=== PATIENT | female | born 1950 | race Caucasian/White ===

== ENCOUNTER → 2018-04-02 11:35 | Outpatient (CLI) | payer OTHER, SELFPAY ==
--- NOTE | 2018-04-02 | DI.MG.S_ITS ---
BILATERAL DIGITAL SCREENING MAMMOGRAM 3D/2D WITH CAD: 04/02/2018 CLINICAL: Routine screening. Family history of breast cancer. Comparison is made to exams dated: 03/20/2017 mammogram, 03/17/2016 mammogram, and 03/16/2015 mammogram - [facility]. There are scattered fibroglandular elements in both breasts. Current study was also evaluated with a Computer Aided Detection (CAD) system. No significant masses, calcifications, or other findings are seen in either breast. There has been no significant interval change. IMPRESSION: NEGATIVE There is no mammographic evidence of malignancy. A 1 year screening mammogram is recommended. This exam was interpreted at Station ID: [id number]. NOTE: For mammograms, a report in lay terms will be sent to the patient. Approximately 15% of breast malignancies will not be visualized mammographically. In the management of a palpable breast mass, a negative mammogram must not discourage biopsy of a clinically suspicious lesion. Electronically Signed By: Maciel davila/rowdy:04/02/2018 14:45:11 letter sent: Normal Exam ACR BI-RADS Category 1: Negative [id number]
== END ==
PROVIDERS: PCP Family Medicine; Visit Provider Family Medicine
DX: Z12.31 Encounter for screening mammogram for malignant neoplasm of breast (principal); Z80.3 Family history of malignant neoplasm of breast
CPT/HCPCS: 77063; 77067

== ENCOUNTER → 2019-04-06 11:19 | Outpatient (CLI) | payer OTHER, SELFPAY ==
--- NOTE | 2019-04-06 | DI.MG.S_ITS ---
BILATERAL DIGITAL SCREENING MAMMOGRAM 3D/2D WITH CAD: 04/06/2019 CLINICAL: Routine screening. Family history of breast cancer. Comparison is made to exams dated: 04/02/2018 mammogram, 03/20/2017 mammogram, and 03/17/2016 mammogram - [facility]. There are scattered fibroglandular elements in both breasts. Current study was also evaluated with a Computer Aided Detection (CAD) system. There is an oval equal density mass with an obscured and circumscribed margin in the right breast at 12 o'clock in the retroareolar region. No other significant masses, calcifications, or other findings are seen in either breast. IMPRESSION: INCOMPLETE: NEEDS ADDITIONAL IMAGING EVALUATION The oval equal density mass in the right breast is indeterminate. Mediolateral and spot compression views as well as additional views with possible ultrasound are recommended. This exam was interpreted at Station ID: [id number]. NOTE: For mammograms, a report in lay terms will be sent to the patient. Approximately 15% of breast malignancies will not be visualized mammographically. In the management of a palpable breast mass, a negative mammogram must not discourage biopsy of a clinically suspicious lesion. Electronically Signed By: Rigo garcias/rowdy:04/06/2019 15:33:50 letter sent: Additional Imaging Needed ACR BI-RADS Category 0: Incomplete 3340F
== END ==
PROVIDERS: PCP Family Medicine; Visit Provider Family Medicine
DX: Z12.31 Encounter for screening mammogram for malignant neoplasm of breast (principal); Z80.3 Family history of malignant neoplasm of breast
CPT/HCPCS: 77063; 77067

== ENCOUNTER → 2019-04-21 12:29 | Outpatient (CLI) | payer OTHER, SELFPAY ==
--- NOTE | 2019-04-21 | DI.MG.S_ITS ---
UNILATERAL RIGHT DIGITAL DIAGNOSTIC MAMMOGRAM 3D/2D WITH ADDITIONAL VIEWS: 04/21/2019 CLINICAL: Additional evaluation requested from prior study. Comparison is made to exams dated: 04/06/2019 mammogram, 04/02/2018 mammogram, and 03/20/2017 mammogram - [facility]. There are scattered fibroglandular elements in right breast. There is 0.5 cm oval equal density mass with a circumscribed margin in the right breast at 12 o'clock anterior depth. No other significant masses or calcifications are seen in the breast. IMPRESSION: INCOMPLETE: NEEDS ADDITIONAL IMAGING EVALUATION The 0.5 cm oval equal density mass in the right breast is indeterminate. An ultrasound is recommended. This exam was interpreted at Station ID: [id number]. NOTE: For mammograms, a report in lay terms will be sent to the patient. Approximately 15% of breast malignancies will not be visualized mammographically. In the management of a palpable breast mass, a negative mammogram must not discourage biopsy of a clinically suspicious lesion. Electronically Signed By: Rigo garcias/rowdy:04/21/2019 13:29:14 ACR BI-RADS Category 0: Incomplete [id number]
--- NOTE | 2019-04-21 | DI.US.S_ITS ---
LIMITED ULTRASOUND OF RIGHT BREAST: 04/21/2019 CLINICAL: Additional evaluation requested from prior study. Comparison is made to exams dated: 04/21/2019 mammogram, 04/06/2019 mammogram, 04/02/2018 mammogram, 03/20/2017 mammogram, and 03/17/2016 mammogram - [facility]. Color flow and real-time ultrasound of the right breast 12 o'clock region were performed on the areas of interest. There is 0.6 cm x 0.4 cm x 0.5 cm oval mass with a circumscribed margin in the right breast at 12 o'clock anterior depth. This oval mass is hypoechoic with a well-defined boundary and posterior acoustic shadowing. This correlates with mammography findings. Color flow imaging demonstrates that there is no vascularity present. There also is 1.4 cm x 1 cm x 1.9 cm oval mass with an indistinct and circumscribed margin in the right breast at 12 o'clock anterior depth. This oval mass is hypoechoic with posterior acoustic shadowing. This abnormality correlates with a focal asymmetry on mammography which appears similar compared to prior studies. Color flow imaging demonstrates that there is no vascularity present. Additionally, there is 2.8 cm x 1.3 cm x 2.6 cm oval solid mass with an indistinct and circumscribed margin in the right breast at 11 o'clock anterior depth. This oval solid mass is hypoechoic with posterior acoustic shadowing. This abnormality correlates with a focal asymmetry on mammography which appears similar compared to prior studies. Color flow imaging demonstrates that there is no vascularity present. IMPRESSION: SUSPICIOUS OF MALIGNANCY The new 0.6 cm x 0.4 cm x 0.5 cm oval mass in the right breast at 12 o'clock anterior depth is at a low suspicion for malignancy. An ultrasound guided biopsy is recommended. The 1.4 cm x 1 cm x 1.9 cm oval mass in the right breast at 12 o'clock anterior depth likely corresponds to mammography findings which appear similar to prior studies and is probably benign. A follow-up ultrasound in 6 months is recommended. The 2.8 cm x 1.3 cm x 2.6 cm oval solid mass in the right breast at 11 o'clock anterior depth likely corresponds to mammography findings which appear similar to prior studies and is probably benign. A follow-up ultrasound in 6 months is recommended. The findings were discussed with the patient at the conclusion of the study by Dr. Pretty. This exam was interpreted at Station ID: [id number]. Electronically Signed By: Rigo Fox M.D. ddp/:04/21/2019 15:07:29 letter sent: Biopsy Required Ultrasound BI-RADS: 4a Suspicious abnormality - low suspicion for malignancy
== END ==
PROVIDERS: PCP Family Medicine; Visit Provider Family Medicine
DX: R92.8 Other abnormal and inconclusive findings on diagnostic imaging of breast (principal); N63.10 Unspecified lump in the right breast, unspecified quadrant; N63.11 Unspecified lump in the right breast, upper outer quadrant
CPT/HCPCS: 76642; 77065; G0279

== ENCOUNTER → 2019-05-13 13:27 | Outpatient (CLI) | payer OTHER, SELFPAY ==
--- NOTE | 2019-05-13 13:30 | DI.US.S_ITS ---
ULTRASOUND GUIDED BIOPSY RIGHT BREAST WITH MARKING DEVICE INSERTED AND POST MAMMOGRAPHIC IMAGING- - RIGHT BREAST: 05/13/2019 CLINICAL: Right breast mass. PATIENT CONSENT: Risks (minor bleeding, infection, vasovagal reaction and repeat procedure), benefits and alternatives were explained to the patient and written informed consent was obtained. Correlation is made to exams dated: 05/13/2019 mammogram, 04/21/2019 ultrasound, 04/21/2019 mammogram, 04/06/2019 mammogram, and 04/02/2018 mammogram - [facility]. An ultrasound guided biopsy using real-time ultrasound was performed for the 0.3 cm x 0.4 cm wider than tall circumscribed oval mass located in the right breast at 12 o'clock anterior depth 6 cm from the nipple. This was described on the previous mammography and ultrasound reports. The skin was prepped in the usual manner. Local anesthetic was administered to the access site. The abnormality was approached from the lateral aspect. An 18 gauge biopsy needle was placed adjacent to the abnormality through an introducer device under ultrasound guidance. Once the needle was documented to be in the correct location, six specimens were obtained using A.C.T. Tenmo. A clip was inserted into the biopsy cavity. Post procedure mammographic imaging demonstrates the location device at the targeted area. The specimens were sent to the laboratory for pathological analysis. IMPRESSION: ULTRASOUND GUIDED BIOPSY BENIGN Ultrasound guided biopsy of the 0.3 cm x 0.4 cm wider than tall mass in the right breast at 12 o'clock anterior depth 6 cm from the nipple was successful. Pathology indicates benign fat necrosis (FN) and fibrosis with early calcifications present. No atypia, carcinoma in-situ, or malignancy. Pathology results are concordant with imaging findings. A follow-up right mammogram and an ultrasound in 6 months is recommended to demonstrate stability of two probably right breast masses seen on recent diagnostic workup dated 04/21/2019 at the 12:00 and 11:00 positions described on previous ultrasound. This exam was interpreted at Station ID: [id number]. Arjun Jalloh M.D. aty/:05/20/2019 10:56:40
--- NOTE | 2019-05-13 13:32 | DI.MG.S_ITS ---
UNILATERAL RIGHT DIGITAL DIAGNOSTIC MAMMOGRAM - RIGHT BREAST POST-PROCEDURE IMAGING FOR MARKER PLACEMENT: 05/13/2019 CLINICAL: Post clip. Comparison is made to exams dated: 04/21/2019 ultrasound and 04/21/2019 mammogram - [facility]. There are scattered fibroglandular elements in right breast. There is a marker clip in the appropriate position in the right breast at 12 o'clock anterior depth 6 cm from the nipple. This correlates with ultrasound findings. There is a biopsy clip associated with the mass. IMPRESSION: POST PROCEDURE MAMMOGRAM FOR MARKER PLACEMENT There was a successful marker clip placement in the right breast anterior depth. This exam was interpreted at Station ID: [id number]. NOTE: For mammograms, a report in lay terms will be sent to the patient. Approximately 15% of breast malignancies will not be visualized mammographically. In the management of a palpable breast mass, a negative mammogram must not discourage biopsy of a clinically suspicious lesion. Electronically Signed By: Arjun Jalloh M.D. aty/:05/13/2019 19:30:05 ACR BI-RADS Category Post-procedure mammogram for marker placement
--- NOTE | 2019-05-13 15:31 | PATH_ITS ---
[facility] Accession Number: [id number] . 01 Material submitted: . breast - RIGHT BREAST . 01 Clinical history: . 5 MM LESION 12:00 6 CM FN . 01 Diagnosis: Right Breast, 12 o'clock, 6 cm From Nipple, Biopsy: Breast parenchyma with fat necrosis, fibrosis, and early calcifications. Negative for atypia, carcinoma in situ, and invasive malignancy. MRV/05/19/2019 . 01 Comment: Deeper levels are examined on parts A and B. The findings are discussed with Dr. Ravi's office (reported to Dr. Worthy) on 05/18/2019 at 6:00 pm. . 01 Electronically signed: . Dulce Ackerman MD, Pathologist NPI- [id number] . 01 Gross description: . Received in formalin, labeled with the patient's name and right breast 12 o'clock, are six colon-brown soft tissue cores ranging from 0.5 to 0.8 cm in length by 0.1 cm in diameter, which are entirely submitted in two cassettes. The specimen is collected on 05/13/2019 at approximately 1530 hours for an approximate fixation time of 42 hours. (ARNOLD:[id number]) /MRV . 01 Microscopic: . Areas of scarring with bland spindle cells are evaluated with the following immunohistochemical panel on block A2, with appropriately staining external controls. The bland spindle cells show the following immunoreactivity: . FATIMAH: negative (for non-specific staining). CD68: diffusely positive. P63: negative. Beta-Catenin: negative. . * This test was developed and its performance characteristics determined by [facility]. It has not been cleared or approved by the U.S. Food and Drug Administration. The FDA has determined that such clearance or approval is not necessary. This test is used for clinical purposes. It should not be regarded as investigational or for research. . 01 Pathologist provided ICD-10: N64.9 . 01 CPT . 740128, J22460, V26477 Performed at: [address] [facility], [place], [place] [id number] MD Rigo Turner MD Phone: [phone]
== END ==
PROVIDERS: PCP Physical Medicine & Rehabilitation Sports Medicine; Visit Provider Physical Medicine & Rehabilitation Sports Medicine
DX: N60.31 Fibrosclerosis of right breast (principal); N64.1 Fat necrosis of breast
CPT/HCPCS: 19083; 77065

== ENCOUNTER → 2019-11-07 07:52 | Outpatient (CLI) | payer OTHER, SELFPAY ==
--- NOTE | 2019-11-07 | DI.MG.S_ITS ---
UNILATERAL RIGHT DIGITAL DIAGNOSTIC MAMMOGRAM 3D/2D SHORT-TERM FOLLOW-UP: 11/07/2019 CLINICAL: Patient returns for a 6 month follow up of the right breast. Comparison is made to exams dated: 05/13/2019 ultrasound biopsy, 05/13/2019 mammogram, 04/21/2019 ultrasound, and 04/21/2019 mammogram - [facility]. There are scattered fibroglandular elements in right breast. There is a marker clip in the appropriate position in the right breast at 12 o'clock middle depth. This marker clip placement is at the biopsy site. THe previously vizualized mass is slightly decreased in size. No other significant masses or calcifications are seen in the breast. IMPRESSION: INCOMPLETE: NEEDS ADDITIONAL IMAGING EVALUATION Previously biopsied mass in the right breast is redemonstrated and is slightly decreased in size. A right breast ultrasound is recommended to evaluate the hypoechoic masses seen on the previous ultrasound dated 04/21/19, and will be performed immediately after this exam. This exam was interpreted at Station ID: [id number]. NOTE: For mammograms, a report in lay terms will be sent to the patient. Approximately 15% of breast malignancies will not be visualized mammographically. In the management of a palpable breast mass, a negative mammogram must not discourage biopsy of a clinically suspicious lesion. Electronically Signed By: Bibiana Fisher M.D. lk/:11/09/2019 07:56:54 ACR BI-RADS Category 0: Incomplete 3340F
--- NOTE | 2019-11-07 | DI.US.S_ITS ---
ULTRASOUND OF RIGHT BREAST: 11/07/2019 CLINICAL: 6 month follow-up of biopsy and additional 2 masses. Comparison is made to exams dated: 11/07/2019 mammogram, 05/13/2019 ultrasound biopsy, 05/13/2019 mammogram, 04/21/2019 ultrasound, 04/21/2019 mammogram, and 04/06/2019 mammogram - [facility]. Color flow and real-time ultrasound of the right breast were performed on the areas of interest. Landry scale images of the real-time examination were reviewed. There is a 1.4 cm x 1 cm x 1.9 cm oval mass with an indistinct and circumscribed margin in the right breast at 12 o'clock anterior depth. This oval mass is hypoechoic with posterior acoustic shadowing. This abnormality is stable. Color flow imaging demonstrates that there is no vascularity present. There also is a 2.8 cm x 1.3 cm x 2.6 cm oval solid mass with an indistinct and circumscribed margin in the right breast at 11 o'clock anterior depth. This oval solid mass is hypoechoic with posterior acoustic shadowing. This abnormality is stable and correlates with mammography findings. Color flow imaging demonstrates that there is no vascularity present. There is an oval mass with a circumscribed margin in the right breast at 12 o'clock anterior depth with an associated biopsy clip. Color flow imaging demonstrates that there is no vascularity present. IMPRESSION: PROBABLY BENIGN The 1.4 cm x 1 cm x 1.9 cm oval mass in the right breast at 12 o'clock anterior depth likely represents a fibroadenoma is probably benign. A follow-up ultrasound in 6 months is recommended. The 2.8 cm x 1.3 cm x 2.6 cm oval solid mass in the right breast at 11 o'clock anterior depth likely represents a fibroadenoma is probably benign. A follow-up ultrasound in 6 months is recommended. The oval mass in the right breast at 12 o'clock anterior depth was previously biopsied and is benign. This exam was interpreted at Station ID: [id number]. SUMMARY: The patient will be due for her bilateral mammogram at this time. Electronically Signed By: Bibiana richey/:11/09/2019 07:49:20 letter sent: Followup Recommended Ultrasound BI-RADS: 3 Probably benign
== END ==
PROVIDERS: PCP Student in an Organized Health Care Education/Training Program; Visit Provider Student in an Organized Health Care Education/Training Program
DX: R92.8 Other abnormal and inconclusive findings on diagnostic imaging of breast (principal); N63.11 Unspecified lump in the right breast, upper outer quadrant; D24.1 Benign neoplasm of right breast
CPT/HCPCS: 76642; 77065; G0279

== ENCOUNTER → 2020-05-03 08:16 | Outpatient (CLI) | payer OTHER, SELFPAY ==
--- NOTE | 2020-05-03 | DI.MG.S_ITS ---
BILATERAL DIGITAL DIAGNOSTIC MAMMOGRAM 3D/2D: 05/03/2020 CLINICAL: Short follow up, due bilateral. Comparison is made to exams dated: 11/07/2019 mammogram, 05/13/2019 mammogram, 04/21/2019 mammogram, 04/06/2019 mammogram, 04/02/2018 mammogram, and 03/20/2017 mammogram - [facility]. There are scattered fibroglandular elements in both breasts. There also is a 1.4 cm oval mass with an obscured and circumscribed margin in the right breast at 12 o'clock anterior depth. This is not significantly changed. Biopsy site marker at 12:00 located slightly lateral at site of previously seen mass which is less conspicuous. Additionally, there is a 2.4 cm mass with an obscured margin in the right breast at 11 o'clock anterior depth. This is not significantly changed. No other significant masses, calcifications, or other findings are seen in either breast. IMPRESSION: INCOMPLETE: NEEDS ADDITIONAL IMAGING EVALUATION 1) The 1.4 cm oval mass in the right breast at 12 o'clock anterior depth is indeterminate. A targeted ultrasound is recommended and will immediately follow. 2) The 2.4 cm mass in the right breast at 11 o'clock anterior depth is indeterminate. A targeted ultrasound is recommended and will immediately follow. This exam was interpreted at Station ID: [id number]. NOTE: For mammograms, a report in lay terms will be sent to the patient. Approximately 15% of breast malignancies will not be visualized mammographically. In the management of a palpable breast mass, a negative mammogram must not discourage biopsy of a clinically suspicious lesion. Electronically Signed By: Vincenzo Cha M.D. slc/:05/03/2020 09:19:57 ACR BI-RADS Category 0: Incomplete 3340F
--- NOTE | 2020-05-03 | DI.US.S_ITS ---
LIMITED ULTRASOUND OF RIGHT BREAST AND AXILLA: 05/03/2020 CLINICAL: 6 month follow-up of masses. Comparison is made to exams dated: 05/03/2020 mammogram, 11/07/2019 ultrasound, 11/07/2019 mammogram, 05/13/2019 ultrasound biopsy, 05/13/2019 mammogram, and 04/21/2019 [facility]. Color flow and real-time ultrasound of the right breast 11-12 o'clock, and axilla regions were performed. Landry scale images of the real-time examination were reviewed. There is a 2 x 1.4 x 0.9 cm oval mass (previously 1.6 x 1.5 x 1 cm) with an indistinct and circumscribed margin in the right breast at 12 o'clock anterior depth 5 cm from the nipple. This oval mass is hypoechoic with posterior acoustic shadowing. Shadowing is more prominent which is felt to be due to differences in ultrasound frequency rather than increased calcification. This abnormality is not significantly changed and correlates with mammography findings. Color flow imaging demonstrates that there is no vascularity present. There also is a 2.6 x 2.3 x 1.5 cm oval solid mass (previously 2.6 x 1.9 x 1.6 cm) with an indistinct and circumscribed margin in the right breast at 11 o'clock middle depth 5 cm from the nipple. This oval solid mass is hypoechoic with posterior acoustic shadowing. This abnormality is not significantly changed and correlates with mammography findings. Color flow imaging demonstrates that there is no vascularity present. Additionally, there is a 0.5 x 0.4 x 0.4 cm benign oval mass (previously 0.4 x 0.4 x 0.4 cm) with a circumscribed margin in the right breast at 12 o'clock anterior depth 6 cm from the nipple. This oval mass is hypoechoic with posterior acoustic shadowing. This correlates with mammography findings. There is an associated biopsy clip. Color flow imaging demonstrates that there is an adjacent vascularity. No significant abnormalities were seen sonographically in the right axilla. IMPRESSION: PROBABLY BENIGN 1) The 2 cm oval mass in the right breast at 12 o'clock anterior depth is most consistent with a fibroadenoma and is not significantly changed and is probably benign. 2) The 2.6 cm oval mass in the right breast at 11 o'clock middle depth is most consistent with a fibroadenoma and is not significantly changed and is probably benign. 3) Previously biopsied benign mass at 12 o'clock measuring 0.5 cm is stable. A follow-up right breast mammogram and an ultrasound in 6 months is recommended to demonstrate stability. Exam findings conveyed to the patient. This exam was interpreted at Station ID: [id number]. Electronically Signed By: Vincenzo Cha M.D. slc/:05/03/2020 10:36:33 letter sent: Followup Recommended Ultrasound BI-RADS: 3 Probably benign
== END ==
PROVIDERS: PCP Student in an Organized Health Care Education/Training Program; Referring Provider Student in an Organized Health Care Education/Training Program; Visit Provider Student in an Organized Health Care Education/Training Program
DX: R92.8 Other abnormal and inconclusive findings on diagnostic imaging of breast (principal); N63.10 Unspecified lump in the right breast, unspecified quadrant; N63.11 Unspecified lump in the right breast, upper outer quadrant
CPT/HCPCS: 76642; 77066; G0279

== ENCOUNTER → 2020-11-22 09:19 | Outpatient (CLI) | payer OTHER, SELFPAY ==
--- NOTE | 2020-11-22 09:21 | DI.US.S_ITS ---
LIMITED ULTRASOUND OF RIGHT BREAST: 11/22/2020 CLINICAL: 6 month follow-up of masses. Comparison is made to exams dated: 11/22/2020 mammogram, 05/03/2020 ultrasound, 05/03/2020 mammogram, 11/07/2019 ultrasound, 11/07/2019 mammogram, and 05/13/2019 ultrasound [facility]. Color flow and real-time ultrasound of the right breast 11-12 o'clock region were performed on the areas of interest. There is a stable 2.5 cm x 1.6 cm x 2.4 cm oval mass with an indistinct and circumscribed margin in the right breast at 11 o'clock anterior depth. This oval mass is hypoechoic with posterior acoustic shadowing. This correlates with mammography findings. Color flow imaging demonstrates that there is no increase in vascularity. There also is a stable 1.6 cm x 1 cm x 1.5 cm oval mass with an indistinct and circumscribed margin in the right breast at 12 o'clock anterior depth. This oval mass is hypoechoic with posterior acoustic shadowing. This correlates with mammography findings. Color flow imaging demonstrates that there is no increase in vascularity. Additionally, there is a benign 0.5 cm x 0.3 cm x 0.4 cm oval mass with an indistinct and circumscribed margin in the right breast at 12 o'clock anterior depth. This oval mass is hypoechoic. This correlates with mammography findings. There is an associated biopsy clip. IMPRESSION: PROBABLY BENIGN The stable 2.5 cm x 1.6 cm x 2.4 cm oval mass in the right breast at 11 o'clock anterior depth likely represents a fibroadenoma and is probably benign. Follow-up mammogram and ultrasound in 6 months is recommended. The stable 1.6 cm x 1 cm x 1.5 cm oval mass in the right breast at 12 o'clock anterior depth likely represents a fibroadenoma and is probably benign. Follow-up mammogram and ultrasound in 6 months is recommended. The 0.5 cm x 0.3 cm x 0.4 cm oval mass in the right breast at 12 o'clock anterior depth is benign. A follow-up mammogram and an ultrasound in 6 months are recommended to demonstrate 2 year stability. This exam was interpreted at Station ID: [id number]. Electronically Signed By: Rigo Fox M.D. ddp/:11/22/2020 11:29:01 letter sent: Followup Recommended Ultrasound BI-RADS: 3 Probably benign
--- NOTE | 2020-11-22 09:21 | DI.MG.S_ITS ---
UNILATERAL RIGHT DIGITAL DIAGNOSTIC MAMMOGRAM 3D/2D SHORT-TERM FOLLOW-UP: 11/22/2020 CLINICAL: Patient returns for a 6 month follow up of the right breast. Comparison is made to exams dated: 05/03/2020 mammogram, 11/07/2019 mammogram, 05/13/2019 mammogram, and 04/21/2019 mammogram - [facility]. There are scattered fibroglandular elements in right breast. There is an oval low density mass with an indistinct margin in the right breast at 11 o'clock anterior depth. This is not significantly changed. There is a biopsy clip associated with the mass. There also is an oval equal density mass with an obscured and circumscribed margin in the right breast at 12 o'clock in the retroareolar region. This is not significantly changed. Additionally, there is an oval equal density mass with an obscured and circumscribed margin in the right breast at 11 o'clock in the retroareolar region. No other significant masses or calcifications are seen in the breast. IMPRESSION: INCOMPLETE: NEEDS ADDITIONAL IMAGING EVALUATION The oval low density mass in the right breast at 11 o'clock anterior depth is indeterminate. An ultrasound is recommended. The oval equal density mass in the right breast at 12 o'clock in the retroareolar region is indeterminate. An ultrasound is recommended. The oval equal density mass in the right breast at 11 o'clock in the retroareolar region is indeterminate. An ultrasound is recommended. Ultrasound will be performed immediately following the current exam. This exam was interpreted at Station ID: [id number]. NOTE: For mammograms, a report in lay terms will be sent to the patient. Approximately 15% of breast malignancies will not be visualized mammographically. In the management of a palpable breast mass, a negative mammogram must not discourage biopsy of a clinically suspicious lesion. Electronically Signed By: Rigo Fox M.D. ddp/:11/22/2020 10:11:50 ACR BI-RADS Category 0: Incomplete 3340F
== END ==
PROVIDERS: PCP Student in an Organized Health Care Education/Training Program; Referring Provider Student in an Organized Health Care Education/Training Program; Visit Provider Student in an Organized Health Care Education/Training Program
DX: N63.10 Unspecified lump in the right breast, unspecified quadrant (principal); R92.8 Other abnormal and inconclusive findings on diagnostic imaging of breast
CPT/HCPCS: 76642; 77065; G0279

== ENCOUNTER → 2021-05-08 08:24 | Outpatient (CLI) | payer OTHER, SELFPAY ==
--- NOTE | 2021-05-08 | DI.US.S_ITS ---
LIMITED ULTRASOUND OF RIGHT BREAST: 05/08/2021 CLINICAL: 6 month follow-up of calcified masses. Comparison is made to exams dated: 05/08/2021 mammogram, 11/22/2020 ultrasound, 11/22/2020 mammogram, 05/03/2020 ultrasound, 05/03/2020 mammogram, and 11/07/2019 ultrasound - [facility]. Color flow and real-time ultrasound of the right breast 11-12 o'clock region were performed. Landry scale images of the real-time examination were reviewed. There is a stable 2.7 cm x 1.4 cm x 2.5 cm oval mass with a circumscribed margin in the right breast at 11 o'clock anterior depth 5 cm from the nipple. This oval mass is hypoechoic and heterogeneously echogenic with posterior acoustic shadowing. This correlates with mammography findings. Color flow imaging demonstrates that there is no increase in vascularity. There also is a stable 1.7 cm x 0.9 cm x 1.4 cm oval mass with a circumscribed margin in the right breast at 12 o'clock anterior depth 5 cm from the nipple. This oval mass is hypoechoic with posterior acoustic shadowing. This correlates with mammography findings. Color flow imaging demonstrates that there is no vascularity present. Additionally, there is a stable 0.5 cm x 0.3 cm x 0.4 cm oval mass with an indistinct and circumscribed margin in the right breast at 12 o'clock anterior depth 6 cm from the nipple. This oval mass is hypoechoic. This abnormality is less prominent and correlates with mammography findings. There is an associated biopsy clip. IMPRESSION: BENIGN The 2.7 cm oval mass in the right breast at 11 o'clock anterior depth likely represents a fibroadenoma, has demonstrated two year stability, and is benign. The stable 1.7 cm oval mass in the right breast at 12 o'clock anterior depth likely represents a fibroadenoma, has demonstrated two year stability, and is benign. The stable 0.5 cm oval mass in the right breast at 12 o'clock anterior depth has been biopsied and is benign. Return to annual mammogram screening schedule is recommended. Findings and recommendations were conveyed to the patient at time of exam. This exam was interpreted at Station ID: [id number]. Electronically Signed By: Eva mc/:05/08/2021 10:22:48 letter sent: Normal Exam Ultrasound BI-RADS: 2 Benign
--- NOTE | 2021-05-08 | DI.MG.S_ITS ---
BILATERAL DIGITAL DIAGNOSTIC MAMMOGRAM 3D/2D: 05/08/2021 CLINICAL: Short follow up, due biateral. Family history of breast cancer. Comparison is made to exams dated: 11/22/2020 mammogram, 05/03/2020 mammogram, 11/07/2019 mammogram, 05/13/2019 mammogram, and 04/21/2019 mammogram - [facility]. There are scattered fibroglandular elements in both breasts. There is an oval low density mass with an indistinct margin in the right breast at 12 o'clock anterior depth. This is less prominent. There is a biopsy clip associated with the mass. There also is a stable oval equal density mass with an obscured and circumscribed margin in the right breast at 12 o'clock in the retroareolar region. Additionally, there is a stable oval equal density mass with an obscured and circumscribed margin in the right breast at 11 o'clock in the retroareolar region. No other significant masses, calcifications, or other findings are seen in either breast. IMPRESSION: INCOMPLETE: NEEDS ADDITIONAL IMAGING EVALUATION The oval low density mass in the right breast at 12 o'clock anterior depth has been biopsied and is benign. The oval equal density mass in the right breast at 12 o'clock in the retroareolar region is stable but remains indeterminate. An ultrasound is recommended. The oval equal density mass in the right breast at 11 o'clock in the retroareolar region is stable but remains indeterminate. An ultrasound is recommended. This was performed immediately following this exam. Left breast mammogram is stable. This exam was interpreted at Station ID: [id number]. NOTE: For mammograms, a report in lay terms will be sent to the patient. Approximately 15% of breast malignancies will not be visualized mammographically. In the management of a palpable breast mass, a negative mammogram must not discourage biopsy of a clinically suspicious lesion. Electronically Signed By: Eva mc/:05/08/2021 09:19:59 ACR BI-RADS Category 0: Incomplete 3340F
== END ==
PROVIDERS: PCP Student in an Organized Health Care Education/Training Program; Referring Provider Student in an Organized Health Care Education/Training Program; Visit Provider Student in an Organized Health Care Education/Training Program
DX: R92.8 Other abnormal and inconclusive findings on diagnostic imaging of breast (principal); N63.11 Unspecified lump in the right breast, upper outer quadrant; N63.15 Unspecified lump in the right breast, overlapping quadrants; D24.1 Benign neoplasm of right breast; Z80.3 Family history of malignant neoplasm of breast
CPT/HCPCS: 76642; 77066; G0279

== ENCOUNTER → 2021-05-20 11:19 | Outpatient (CLI) | payer OTHER, SELFPAY | PROVIDERS: PCP Student in an Organized Health Care Education/Training Program; Referring Provider Student in an Organized Health Care Education/Training Program; Visit Provider Student in an Organized Health Care Education/Training Program | DX: M85.851 Other specified disorders of bone density and structure, right thigh (principal); Z78.0 Asymptomatic menopausal state | CPT/HCPCS: 77080 ==

== ENCOUNTER → 2022-05-14 07:42 | Outpatient (CLI) | payer OTHER, SELFPAY ==
--- NOTE | 2022-05-14 | DI.MG.S_ITS ---
BILATERAL DIGITAL SCREENING MAMMOGRAM 3D/2D WITH CAD: 05/14/2022 CLINICAL: Routine screening. Family history of breast cancer. Comparison is made to exams dated: 05/08/2021 mammogram, 11/22/2020 mammogram, and 05/03/2020 mammogram - [facility]. There are scattered fibroglandular elements in both breasts. Current study was also evaluated with a Computer Aided Detection (CAD) system. There is a benign focal asymmetry in the left breast. There also are benign calcifications in both breasts. No significant masses, calcifications, or other findings are seen in either breast. There has been no significant interval change. IMPRESSION: BENIGN There is no mammographic evidence of malignancy. A 1 year screening mammogram is recommended. Based on the Tyrer Cuzick model (a risk assessment model) the patient's lifetime risk is 9.4% and her 10 year risk is 7.0%. According to the ACR, ACS, and NCCN guidelines, an annual breast MRI exam along with mammogram is recommended if the patient's lifetime risk is 20% or greater. This exam was interpreted at Station ID: [id number]. NOTE: For mammograms, a report in lay terms will be sent to the patient. Approximately 15% of breast malignancies will not be visualized mammographically. In the management of a palpable breast mass, a negative mammogram must not discourage biopsy of a clinically suspicious lesion. Electronically Signed By: Jordan shen/rowdy:05/14/2022 09:30:59 letter sent: Normal Exam ACR BI-RADS Category 2: Benign Finding(s) 3342F
== END ==
PROVIDERS: PCP Family Medicine; Referring Provider Family Medicine; Visit Provider Family Medicine
DX: Z12.31 Encounter for screening mammogram for malignant neoplasm of breast (principal); Z80.3 Family history of malignant neoplasm of breast
CPT/HCPCS: 77063; 77067

== ENCOUNTER → 2022-06-03 08:48 | Outpatient (CLI) | payer OTHER, SELFPAY ==
--- NOTE | 2022-06-03 | DI.RAD.S_ITS ---
PROCEDURE: XR FOOT LT MIN 3V INDICATIONS: Localized swelling, mass and lump, left lower limb TECHNIQUE: 3 views of the foot were acquired. COMPARISON: None. FINDINGS: Bones: Age-indeterminate fracture lucency at the 5th metatarsal base. No dislocation. Scattered osteoarthritic changes, particularly in the midfoot and 1st MTP joint. Soft tissues: No tibiotalar joint effusion. Achilles tendon appears normal. IMPRESSION: Age-indeterminate fracture lucency at the 5th metatarsal base. Correlate for point tenderness to determine acuity. Scattered osteoarthritic changes, particularly in the midfoot and 1st MTP joint. If there is a localized mass or lump, consider ultrasound for further evaluation. No suspicious soft tissue calcification or radiopaque foreign body identified. Dictated by: Jagdeep Wright M.D. on 06/03/2022 at 10:05 Approved by: Jagdeep Wright M.D. on 06/03/2022 at 10:07
== END ==
PROVIDERS: PCP Family Medicine; Referring Provider Family Medicine; Visit Provider Family Medicine
DX: R22.42 Localized swelling, mass and lump, left lower limb (principal)
CPT/HCPCS: 73630

== ENCOUNTER → 2022-06-06 06:35 | Outpatient (CLI) | payer OTHER, SELFPAY ==
--- NOTE | 2022-06-06 06:36 | DI.US.S_ITS ---
PROCEDURE: US EXTREMITY NONVASC LOWER LT INDICATIONS: LEFT FOOT LUMP TECHNIQUE: Real-time scanning was performed of the foot, with image documentation. Color Doppler was also utilized. COMPARISON: [facility], CR, XR FOOT LT MIN 3V, 06/03/2022, 8:53. FINDINGS: At the area of clinical concern along the left lateral mid foot, no soft tissue masses are seen. The clinical palpable lump appears to correspond to the underlying bone. Mild overlying soft tissue edema can be seen. IMPRESSION: No masses are seen. Mild edema can be seen at the site of clinical concern, which appears to be related to the bone itself. If there remains strong clinical concern for a significant lesion at this site, please consider a dedicated foot MRI (without and with contrast) for further evaluation (assuming that there is no contraindication). Dictated by: Preston Enriquez M.D. on 06/06/2022 at 9:18 Approved by: Preston Enriquez M.D. on 06/06/2022 at 9:20
== END ==
PROVIDERS: PCP Family Medicine; Referring Provider Internal Medicine; Visit Provider Internal Medicine
DX: R22.40 Localized swelling, mass and lump, unspecified lower limb
CPT/HCPCS: 76882

== ENCOUNTER → 2023-05-15 07:53 | Outpatient (CLI) | payer OTHER, SELFPAY ==
--- NOTE | 2023-05-15 07:55 | DI.MG.S_ITS ---
BILATERAL DIGITAL SCREENING MAMMOGRAM 3D/2D WITH CAD: 05/15/2023 CLINICAL: Routine screening. Family history of breast cancer. Comparison is made to exams dated: 05/14/2022 mammogram, 05/08/2021 mammogram, 11/22/2020 mammogram, and 05/03/2020 mammogram - . There are scattered areas of fibroglandular density in both breasts (category b / 25%-50% glandular tissue). Current study was also evaluated with a Computer Aided Detection (CAD) system. There is a benign focal asymmetry in the left breast. There also are benign calcifications in both breasts. No significant masses, calcifications, or other findings are seen in either breast. There has been no significant interval change. IMPRESSION: BENIGN There is no mammographic evidence of malignancy. A 1 year screening mammogram is recommended. Based on the Tyrer Cuzick model (a risk assessment model) the patient's lifetime risk is 8.8% and her 10 year risk is 7.2%. According to the ACR, ACS, and NCCN guidelines, an annual breast MRI exam along with mammogram is recommended if the patient's lifetime risk is 20% or greater. This exam was interpreted at Station ID: [id number]. NOTE: For mammograms, a report in lay terms will be sent to the patient. Approximately 15% of breast malignancies will not be visualized mammographically. In the management of a palpable breast mass, a negative mammogram must not discourage biopsy of a clinically suspicious lesion. Electronically Signed By: Jagdeep shipman/rowdy:05/15/2023 09:23:30 letter sent: Normal Exam ACR BI-RADS Category 2: Benign Finding(s) 3342F
== END ==
PROVIDERS: PCP Family Medicine; Referring Provider Family Medicine; Visit Provider Family Medicine
DX: Z12.31 Encounter for screening mammogram for malignant neoplasm of breast (principal); Z80.3 Family history of malignant neoplasm of breast
CPT/HCPCS: 77063; 77067

== ENCOUNTER → 2023-06-26 13:20 | Outpatient (CLI) | payer OTHER, SELFPAY ==
--- NOTE | 2023-06-26 | DI.RAD.S_ITS ---
PROCEDURE: XR KNEE RT 3V INDICATIONS: KNEE PAIN TECHNIQUE: 3 views of the knee were acquired. COMPARISON: None. FINDINGS: Bones: No fractures or dislocations. No suspicious bony lesions. Tricompartmental osteoarthritic changes of the knee with marginal spurring and joint space narrowing, most pronounced within the lateral compartment with moderate to severe joint space narrowing. Soft tissues: Small joint effusion. Small area of dystrophic calcification is seen posterior to the knee.. IMPRESSION: Tricompartmental osteoarthritic changes with moderate to severe joint space narrowing of the lateral compartment. Small area of dystrophic calcification is seen posterior to the knee, nonspecific and may be related to prior trauma. Dictated by: Amilcar Devries M.D. on 06/26/2023 at 14:43 Approved by: Amilcar Devries M.D. on 06/26/2023 at 14:45
== END ==
PROVIDERS: PCP Family Medicine; Referring Provider Family Medicine; Visit Provider Family Medicine
DX: M25.561 Pain in right knee (principal); M25.461 Effusion, right knee
CPT/HCPCS: 73562

== ENCOUNTER → 2024-06-04 07:42 | Outpatient (CLI) | payer OTHER, SELFPAY ==
--- NOTE | 2024-06-04 07:43 | DI.MG.S_ITS ---
BILATERAL DIGITAL SCREENING MAMMOGRAM 3D/2D WITH CAD: 06/04/2024 CLINICAL: Routine screening. Family history of breast cancer. Comparison is made to exams dated: 05/15/2023 mammogram, 05/14/2022 mammogram, and 05/08/2021 mammogram - [facility]. There are scattered areas of fibroglandular density in both breasts (category b / 25%-50% glandular tissue). Current study was also evaluated with a Computer Aided Detection (CAD) system. There is a biopsy clip in the right breast. No significant masses, calcifications, or other findings are seen in either breast. There has been no significant interval change. IMPRESSION: BENIGN There is no mammographic evidence of malignancy. A 1 year screening mammogram is recommended. Based on the Tyrer Cuzick model (a risk assessment model) the patient's lifetime risk is 8.2% and her 10 year risk is 7.4%. According to the ACR, ACS, and NCCN guidelines, an annual breast MRI exam along with mammogram is recommended if the patient's lifetime risk is 20% or greater. This exam was interpreted at Station ID: [id number]. NOTE: For mammograms, a report in lay terms will be sent to the patient. Approximately 15% of breast malignancies will not be visualized mammographically. In the management of a palpable breast mass, a negative mammogram must not discourage biopsy of a clinically suspicious lesion. Electronically Signed By: Faith Singh M.D., Ph.D. сергей/rowdy:06/06/2024 17:08:15 letter sent: Normal Exam ACR BI-RADS Category 2: Benign Finding(s) 3342F
== END ==
LOC: MAMMO 07:42
PROVIDERS: PCP Family Medicine; Referring Provider Family Medicine; Visit Provider Family Medicine
DX: Z12.31 Encounter for screening mammogram for malignant neoplasm of breast (principal); Z80.3 Family history of malignant neoplasm of breast; R92.323 Mammographic fibroglandular density, bilateral breasts
CPT/HCPCS: 77063; 77067

== ENCOUNTER → 2025-06-05 16:03 | Outpatient (CLI) | payer OTHER, SELFPAY ==
--- NOTE | 2025-06-05 16:04 | DI.MG.S_ITS ---
MM screening mammo BI: 06/05/2025. BI-RADS: 2 CLINICAL: 74-year old female for bilateral screening mammogram. Tyrer-Cuzick lifetime risk of 17.5%. Current reported family history of breast cancer: sister. The patient had a prior right breast biopsy. PRIOR EXAMS 06/04/2024, 05/15/2023, 05/14/2022, 05/08/2021, 11/22/2020, 05/03/2020, 11/07/2019. MAMMOGRAPHY TECHNIQUE: 2D and 3D (tomosynthesis) digital mammographic views obtained, with additional images as needed for full coverage. Current study was also evaluated with a Computer Aided Detection (CAD) system. DENSITY C. The breasts are heterogeneously dense, which may obscure small masses. MAMMOGRAPHY FINDINGS Right: Biopsy marker present on the right. Benign-appearing calcification noted on the right. There are no suspicious masses, calcifications, or other findings in the breast. Left: Benign-appearing calcification noted on the left. There are no suspicious masses, calcifications, or other findings in the breast. IMPRESSION: * No evidence of malignancy with benign findings. RECOMMENDATIONS Bilateral * Annual screening mammography. OVERALL ASSESSMENT CATEGORY BI-RADS-2: Benign. The [employer] recommends annual screening mammography beginning at age 40 for women with average risk of breast cancer. ELECTRONICALLY SIGNED: Amina Atkinson M.D. on 06/07/2025 at 03:18:19 PM PT Interpreting Station ID: [id number]
== END ==
LOC: MAMMO 16:04
PROVIDERS: PCP Family Medicine; Referring Provider Family Medicine; Visit Provider Family Medicine
DX: Z12.31 Encounter for screening mammogram for malignant neoplasm of breast (principal); Z80.3 Family history of malignant neoplasm of breast; R92.333 Mammographic heterogeneous density, bilateral breasts
CPT/HCPCS: 77063; 77067

== ENCOUNTER → 2025-09-19 13:00 | Outpatient (CLI) | payer OTHER, SELFPAY ==
--- NOTE | 2025-09-19 13:02 | DI.MG.S_ITS ---
MM diagnostic mammo unilat LT: 09/19/2025. BI-RADS: 2 CLINICAL: 75-year old female for left diagnostic mammogram that is a recall from screening on 06/05/2025. Tyrer-Cuzick lifetime risk of 16.2%. Current reported family history of breast cancer: sister. The patient had a prior right breast biopsy. PRIOR EXAMS Mammogram(s): 06/05/2025, 06/04/2024, 05/15/2023, 05/14/2022, 05/08/2021, 11/22/2020, 03/20/2017. MAMMOGRAPHY TECHNIQUE: 2D and 3D (tomosynthesis) digital mammographic views obtained, with additional images as needed for full coverage. Current study was also evaluated with a Computer Aided Detection (CAD) system. DENSITY Left: C. The breast is heterogeneously dense, which may obscure small masses. MAMMOGRAPHY FINDINGS Left: MLO only, Lower, Middle depth: Correlating with findings on screening mammogram, there is a stable asymmetry seen only on one view. This finding appears similar compared to the prior mammograms, compatible with a benign etiology. Increased prominence on the screening mammogram from 06/05/2025 was likely due to positioning. IMPRESSION: Left * No evidence of malignancy with benign findings. RECOMMENDATIONS Bilateral * Annual screening mammography. COMMENTS: Findings and recommendations were conveyed to the patient during today's evaluation. OVERALL ASSESSMENT CATEGORY BI-RADS-2: Benign. The [employer] recommends annual screening mammography beginning at age 40 for women with average risk of breast cancer. ELECTRONICALLY SIGNED: Amina Atkinson M.D. on 09/19/2025 at 04:14:51 PM PT Interpreting Station ID: [id number]
== END ==
LOC: MAMMO 13:00
PROVIDERS: PCP Family Medicine; Referring Provider Family Medicine; Visit Provider Family Medicine
DX: R92.8 Other abnormal and inconclusive findings on diagnostic imaging of breast (principal); R92.332 Mammographic heterogeneous density, left breast; Z80.3 Family history of malignant neoplasm of breast
CPT/HCPCS: 77065; G0279